=== PATIENT | female | born 1985 | race Caucasian/White ===

== ENCOUNTER 2018-01-15 10:15 | Emergency (ER) | payer MEDICAID, SELFPAY ==
[2018-01-15 10:40] VITALS: BP 121/86; PULSE 80; RESP 18; TEMP 37.2; O2SAT 100; BMI 17.5
--- NOTE | 2018-01-15 10:53 | HMH.EDUTC ---
[facility] [place] Disposition Clinical Impression: Hair loss Disposition: Home, Self-Care Condition on Discharge: Good Instructions: Tinea Capitis, DI for Ringworm Additional Instructions: * Your exam is concerning for ringworm of scalp. I don't think your initial treatment was long enough. This can be difficult to treat. * Your thyroid can also cause hairloss but not typically patchy like this. I did order thyroid labs as well today. * Typically ringworm of scalp (tinea capitis) requires treatment with both medicated shampoo and oral pills. These pills can be hard on your liver hence the need for your labwork today. * Check pets at home for patchy hair loss. * Read attached education. * I understand you have to be to work and can't wait for results. I can not prescribe the medication until I know these results. Call clinic this afternoon, [phone], and we will discuss results and POC over the phone. If you don't call to follow up, I will not send any medication. * we have provided you with a list of providers accepting patients. I would encourage you find him a new primary care provider and make an appt VLADISLAV as it can take weeks to get a new patient appointment as you will need continuing follow up and labs for this condition. In the meantime, follow up in the clinic or ER for new, worsening or persistent symptoms Time of Disposition: 11:08 Medical Decision Making Vital Signs: 01/15/18 10:40 Temperature 99 F Temperature Source Temporal Artery Scan Pulse Rate [Right Brachial] 80 Respiratory Rate 18 Blood Pressure [Right Arm] 121/86 Blood Pressure Mean [Right Arm] 97 Blood Pressure Source [Right Arm] Automatic Cuff Blood Pressure Position [Right Arm] Sitting 02 Sat by Pulse Oximetry 100 Oxygen Delivery Method Room Air - Lab Data labs not resulted prior to discharge. pt refusing to wait and needing to get to work. Reports she will call back for results and POC based on results. Orders (Tests/Meds): ORDERS Category Date Time Status Complete Blood Count Auto Diff Stat Lab 01/15/18 11:02 Ordered Comprehensive Metabolic Panel Stat Lab 01/15/18 11:02 Ordered Thyroid Panel Stat Lab 01/15/18 11:02 Ordered - Henrik Inquiry Pt receiving controlled substance: No [facility] [place] HPI - General Stated complaint: Hair Loss Time Seen by Provider: 01/15/18 10:53 Mode of Arrival: Ambulatory Source of Information: Patient Limitations: No Limitations Description of Symptoms (Recalled from Triage Doc. by RN): RINGWORM OF SCALP (HAIR LOSS AND RASH). DX 1 MONTH AGO HEENT Symptoms (Recalled from RN notes): No Resp Symptoms (Recalled from RN notes): No Skin Symptoms (Recalled from RN notes): Yes (RINGWORM OF SCALP, HAIR LOSS) MS Symptoms (Recalled from RN notes): No Functional Status (Recalled from RN notes): N/A - History of Present Illness Provider Complaint: c/o patchy hair loss to scalp. First noticed approx one month ago at base of hairline posterior neck. Skin flaky and itchy at that time. Was seen at clinic in [facility]. Dx ringworm. Took lamisil PO daily x 2 weeks and started herself on tgel shampoo, used that for 2 weeks also. No labs. No primary care. No recent labs. Since finishing, noticed another patch of hairloss at crown and initial patch larger but less flaky and itchy. No one else w/ symptoms. Has indoor/outdoor pets but hasn't examined them. 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 - Related Data Home Medications Medication Instructions Recorded Confirmed No Known Home Medications [No 01/15/18 01/15/18 Known Home Medications] Allergies Allergy/AdvReac Type Severity Reaction Status Date / Time Penicillins Allergy Verified 01/15/18 10:45 - Worker's Comp Is this a Worker's Comp case?: No [facility] History I have reviewed the patient's past medical history: Yes Medical History: Denies:: Cancer, Diabetes Mellitus Type 1, Diabetes Mellitus Type 2, H
--- NOTE | 2018-01-15 10:58 | ED_ITS ---
[facility] [place] Disposition Clinical Impression: Hair loss Disposition: Home, Self-Care Condition on Discharge: Good Instructions: Tinea Capitis, DI for Ringworm Additional Instructions: * Your exam is concerning for ringworm of scalp. I don't think your initial treatment was long enough. This can be difficult to treat. * Your thyroid can also cause hairloss but not typically patchy like this. I did order thyroid labs as well today. * Typically ringworm of scalp (tinea capitis) requires treatment with both medicated shampoo and oral pills. These pills can be hard on your liver hence the need for your labwork today. * Check pets at home for patchy hair loss. * Read attached education. * I understand you have to be to work and can't wait for results. I can not prescribe the medication until I know these results. Call clinic this afternoon , [phone], and we will discuss results and POC over the phone. If you don't call to follow up, I will not send any medication. * we have provided you with a list of providers accepting patients. I would encourage you find him a new primary care provider and make an appt VLADISLAV as it can take weeks to get a new patient appointment as you will need continuing follow up and labs for this condition. In the meantime, follow up in the clinic or ER for new, worsening or persistent symptoms Time of Disposition: 11:08 Medical Decision Making Vital Signs: 01/15/18 10:40 Temperature 99 F Temperature Source Temporal Artery Scan Pulse Rate [Right Brachial] 80 Respiratory Rate 18 Blood Pressure [Right Arm] 121/86 Blood Pressure Mean [Right Arm] 97 Blood Pressure Source [Right Arm] Automatic Cuff Blood Pressure Position [Right Arm] Sitting 02 Sat by Pulse Oximetry 100 Oxygen Delivery Method Room Air - Lab Data labs not resulted prior to discharge. pt refusing to wait and needing to get to work. Reports she will call back for results and POC based on results. Orders (Tests/Meds): ORDERS Category Date Time Status Complete Blood Count Auto Diff Stat Lab 01/15/18 11:02 Ordered Comprehensive Metabolic Panel Stat Lab 01/15/18 11:02 Ordered Thyroid Panel Stat Lab 01/15/18 11:02 Ordered - Henrik Inquiry Pt receiving controlled substance: No [facility] [place] HPI - General Stated complaint: Hair Loss Time Seen by Provider: 01/15/18 10:53 Mode of Arrival: Ambulatory Source of Information: Patient Limitations: No Limitations Description of Symptoms (Recalled from Triage Doc. by RN): RINGWORM OF SCALP ( HAIR LOSS AND RASH). DX 1 MONTH AGO HEENT Symptoms (Recalled from RN notes): No Resp Symptoms (Recalled from RN notes): No Skin Symptoms (Recalled from RN notes): Yes (RINGWORM OF SCALP, HAIR LOSS) MS Symptoms (Recalled from RN notes): No Functional Status (Recalled from RN notes): N/A - History of Present Illness Provider Complaint: c/o patchy hair loss to scalp. First noticed approx one month ago at base of hairline posterior neck. Skin flaky and itchy at that time. Was seen at clinic in [facility]. Dx ringworm. Took lamisil PO daily x 2 weeks and started herself on tgel shampoo, used that for 2 weeks also. No labs. No primary care. No recent labs. Since finishing, noticed another patch of hairloss at crown and initial patch larger but less flaky and itchy. No one else w/ symptoms. Has indoor/outdoor pets but hasn't examined them. 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 - Related Data
[2018-01-15 11:24] LABS: Basophils # 0.1 K/mm3 (0-0.2); Basophils % 0.7 % (0.1-2.0); Eosinophils # 0.1 K/mm3 (0.0-0.4); Eosinophils % 1.3 % (0.1-12.0); Hematocrit 40.2 % (37.0-47.0); Hemoglobin 13.9 g/dL (12.2-16.2); Lymphocytes # 1.5 K/mm3 (0.7-4.5); Lymphocytes % 18.5 K/mm3 (10-50); Mean Corpuscular HGB Conc 34.6 g/dL (31.8-35.4); Mean Corpuscular Hemoglobin 32.4 pg (27.0-31.2); Mean Corpuscular Volume 93.6 fl (81-99); Mean Platelet Volume 8.1 fl (7.4-10.4); Monocytes # 0.5 K/mm3 (0.1-1.0); Monocytes % 5.8 % (1.7-9.3); Neutrophils # 5.9 K/mm3 (1.8-7.8); Neutrophils % 73.8 % (37.0-80.0); Platelet Count 293 K/mm3 (142-424); Red Blood Count 4.29 M/mm3 (4.20-5.40); Red Cell Distribution Width 11.8 % (11.5-17.5)
[2018-01-15 11:25] VITALS: BP 121/86; PULSE 80; RESP 18; TEMP 37.2; O2SAT 100
[2018-01-15 11:42] LABS: Alanine Aminotransferase 22 U/L (12-78); Albumin Level 3.9 gm/dL (3.4-5.0); Albumin/Globulin Ratio 1.1 (1.1-1.8); Alkaline Phosphatase 72 U/L (46-116); Anion Gap 12.4 mEq/L (5-15); Aspartate Amino Transferase 6 U/L (15-37); Bilirubin,Total 0.4 mg/dL (0.2-1.0); Blood Urea Nitrogen 6 mg/dL (7-18); Calcium 8.3 mg/dL (8.5-10.1); Carbon Dioxide 27 mmol/L (21.0-32.0); Chloride 105 mmol/L (98-107); Creatinine Clearance Estimated 82 mL/min (0-300); Creatinine,Serum 0.67 mg/dL (0.55-1.02); Estimated Glomerular Filt Rate 101 ml/min (>60); Free Thyroxine Index 2.8 ug/dL (5.93-13.13); GFR (African American) 123 ML/MIN (>60); Globulin 3.6 gm/dl (1.3-3.2); Glucose 84 mg/dL (74-106); Potassium 3.4 mmoL/L (3.5-5.1); Sodium 141 mmol/L (136-145); T4 (Thyroxine) 8.5 ug/dl (4.7-13.3); Thyroid Stimulating Hormone 1.27 uIU/ml (0.358-3.740); Total Protein,Serum 7.5 gm/dL (6.4-8.2); Triiodothryronine (T3) Uptake 33 % (31-39)
== END 2018-01-15 11:26 | disposition home or self-care (01) ==
PROVIDERS: Emergency Provider Nurse Practitioner Family
DX: L65.9 Nonscarring hair loss, unspecified (principal); B35.0 Tinea barbae and tinea capitis; F17.210 Nicotine dependence, cigarettes, uncomplicated; Z88.0 Allergy status to penicillin
CPT/HCPCS: 36415; 80053; 84436; 84443; 84479; 85025; 99202

== ENCOUNTER → 2021-07-15 09:44 | Outpatient (CLI) | payer BC, SELFPAY | PROVIDERS: PCP Emergency Medicine; Visit Provider Emergency Medicine | DX: Z20.822 Contact with and (suspected) exposure to COVID-19 (principal) | CPT/HCPCS: U0003 ==

== ENCOUNTER 2023-03-29 10:13 | Emergency (ER) | payer BC, SELFPAY ==
[2023-03-29 10:49] VITALS: BP 110/73; PULSE 82; RESP 18; TEMP 37; O2SAT 98; BMI 17.3
[2023-03-29 11:11] VITALS: BP 110/73; PULSE 82; RESP 18; TEMP 37
[2023-03-29 11:12] LABS: UTC Strep Screen (Rapid) Negative (Negative)
--- NOTE | 2023-03-29 11:21 | EXP.UTC ---
Discharge Plan Disposition Patient Disposition: Home, Self-Care Condition: Good Prescriptions Prescriptions: New azithromycin [Zithromax Z-Albert] 250 mg tablet See Rx Instructions .ROUTE .COMPLEX 5 Days Qty: 6 0RF Rx Instructions: For 250 mg dose pack: take 500 mg today (day 1), then 250 mg for 4 days (days 2-5) Referrals Follow up/Referrals: Provider,Referral, MD [Primary Care Provider] - See instructions Activity Restrictions/Add. Instructions Additional Instructions/Restrictions: *Monitor Temp, Over the counter Motrin or Tylenol as directed/as needed Tylenol every 4 hours and Motrin every 6 hours (as long as your family doctor has told you that you can take it) for fever or pain. and straight to ER if unable to lower temp less than 101.0 after medication given *Warm salt water gargles may help to soothe the throat *Throat Lozenges? *Warm fluids like tea with honey may help to soothe the throat? *Sleep elevated *Humidifier/Vaporizer Your throat swab was sent for culture. Those results are typically sent to your primary care. Be sure to follow up in 2-3 days with your family doctor/primary care physician if no improvement so they can review those result and treat if necessary. If you don?t have a primary care doctor, I recommend you get one but in the mean time, you will have to return to a walk in clinic Follow up IMMEDIATELY for new or worsening symptoms or no Noticeable improvement over the next 48-72 hours. 911 for difficulty breathing or swallowing Clinical Impressions Clinical Impression: Pharyngitis Qualifiers: Pharyngitis/tonsillitis etiology: unspecified etiology Qualified Code(s): J02.9 - Acute pharyngitis, unspecified Instructions Patient Instructions: Sore Throat Discharge ED Provider: Isabella Townsend [facility] General Stated complaint: Strep test, strep exposure Mode of Arrival: Ambulatory Source of Information: Patient Limitations: No Limitations Time Seen by Provider: 03/29/23 11:21 Description of Symptoms (Recalled from Triage Doc. by RN): pt wants a strep test. pt denies any s/sx HEENT Symptoms (Recalled from RN notes): No Resp Symptoms (Recalled from RN notes): No Skin Symptoms (Recalled from RN notes): No MS Symptoms (Recalled from RN notes): No Functional Status (Recalled from RN notes): wnl History of Present Illness Provider Complaint: Patient states that she has been having sore throat for the last couple days States that her son has had strep throat and she has been taking care of him and thinks she may have it now too Related Data Previous Rx's Medication Instructions Recorded azithromycin 250 mg tablet See Rx Instructions PO .COMPLEX 5 03/29/23 (Zithromax Z-Albert) days #6 tabs Allergies Allergy/AdvReac Type Severity Reaction Status Date / Time Penicillins Allergy Verified 03/29/23 11:01 Worker's Comp Is this a Worker's Comp case?: No [facility] Disclaimer: The information contained in this section may have been updated after the patient was seen, as this information can be updated by other users. Social History Smoking Status: Current every day smoker tobacco type: cigarettes alcohol intake: never current occupational status: unemployed Travel in the last 8 weeks: None ROS Obtained: Yes All systems reviewed & no additional complaints except as documented and Yes Systems reviewed as appropriate & no additional complaints except as documented Constitutional Constitutional: Reports system reviewed and no additional complaints, except as documented and Reports as per HPI ENT Ears, Nose, Mouth, and Throat: Reports system reviewed and no additional complaints, except as documented, Reports as per HPI and Reports sore throat Cardiovascular Cardiovascular: Reports system reviewed and no additional complaints, except as documented and Reports as per HPI Respiratory Respiratory: Reports system reviewed and no additional complaints, e
== END 2023-03-29 11:32 | disposition home or self-care (01) ==
PROVIDERS: Emergency Provider Nurse Practitioner
DX: J02.9 Acute pharyngitis, unspecified (principal); F17.210 Nicotine dependence, cigarettes, uncomplicated
CPT/HCPCS: 87880; 99204; 99212; G0463